=== PATIENT | female | born 1950 | race Caucasian/White ===

== ENCOUNTER 2017-12-24 11:01 | Emergency (ER) | payer MEDICARE, MEDICAID ==
[~2017-12-24] VITALS: Ht 175.3 cm; Wt 99.7 kg
[~2017-12-24 11:01] MED LIST: ADULT LOW DOSE81 MG PO; ALBUTEROL SULF8.5 GM INH; ALBUTEROL2.5 MG/3 M INH; ASPIR-TRIN325 MG PO; BACLOFEN10 MG PO; CEPHALEXIN500 MG PO; CYMBALTA30 MG PO; CYMBALTA60 MG PO; EXCEDRIN MIGRA1 EAC2 PO; FLUARIX QU60 MCG/0.3 IM; GABAPENTIN600 MG PO; HYDROCODON-ACE1 EAC8 PO; HYDROMORPHONE HC4 MG PO; MAG-OXIDE400 MG PO; METFORMIN HCL500 M2 PO; METFORMIN HCL500 MG PO; MIRALAX17 GM PO; MULTIVITAMINS1 EAC8 PO; NORCO 10-325 T1 EACH PO; NORCO 5-325 TA1 EACH PO; OMEPRAZOLE20 MG PO; OXYCODONE HCL5 MG PO; PRILOSEC20 MG PO; PROMETHAZINE HC25 M1 PO; SIMVASTATIN40 MG PO; VENTOLIN HFA18 GM INH; VITAMIN B-12100 MCG PO; VITAMIN D31000 UNIT PO
[2017-12-24] MEDS ORDERED: VALIUM10 MG PO (11:24)
== END 2017-12-24 17:28 | disposition short-term general hospital (02) ==
LOC: ED 11:01
DX: A18.01 Tuberculosis of spine (principal); F17.200 Nicotine dependence, unspecified, uncomplicated; E11.9 Type 2 diabetes mellitus without complications; J44.9 Chronic obstructive pulmonary disease, unspecified; Z88.2 Allergy status to sulfonamides; Z88.1 Allergy status to other antibiotic agents; Z88.8 Allergy status to other drugs, medicaments and biological substances; Z91.030 Bee allergy status; Z79.899 Other long term (current) drug therapy
CPT/HCPCS: 72100; 72158; 81001; 85025; 96361; 96374; 96375; 96376; 99285; A9579; J1100; J1170; J2060; J2405; J7120

== ENCOUNTER 2018-02-12 10:02 | Emergency (ER) | payer MEDICARE, MEDICAID ==
[~2018-02-12] VITALS: Ht 175.3 cm; Wt 99.7 kg
[~2018-02-12 10:02] MED LIST changes: +VALIUM10 MG PO
[2018-02-12] MEDS ORDERED: MORPHINE SULFAT10 M1 PO (10:41)
[2018-02-12] MEDS ORDERED: PERCOCET 5-3251 EACH PO (10:42)
== END 2018-02-12 11:44 | disposition home or self-care (01) ==
LOC: ED 10:02
DX: M25.561 Pain in right knee (principal); J44.9 Chronic obstructive pulmonary disease, unspecified; F17.200 Nicotine dependence, unspecified, uncomplicated; Z88.2 Allergy status to sulfonamides; Z88.8 Allergy status to other drugs, medicaments and biological substances; Z88.1 Allergy status to other antibiotic agents; Z91.030 Bee allergy status; Z79.899 Other long term (current) drug therapy; Z79.891 Long term (current) use of opiate analgesic; Z79.84 Long term (current) use of oral hypoglycemic drugs
CPT/HCPCS: 73560; 99283

== ENCOUNTER 2018-04-26 18:07 | Emergency (ER) | payer MEDICARE, MEDICAID ==
[~2018-04-26] VITALS: Ht 175.3 cm; Wt 97.9 kg
[~2018-04-26 18:07] MED LIST changes: +MORPHINE SULFAT10 M1 PO; +PERCOCET 5-3251 EACH PO
[2018-04-26] MEDS ORDERED: ZOFRAN ODT4 MG PO (20:42)
--- NOTE | 2018-04-27 10:49 | EKG ---
[facility] [address] [place], [place] [address] Signed Normal sinus rhythm Anterior infarct , age undetermined Abnormal ECG No previous ECGs available Confirmed by ZEYNEP MAYS MD ([id number]) on 04/27/2018 10:48:45 AM Electronically Signed By: ZEYNEP MAYS MD 04/27/18 1049 PATIENT NAME: ONEIL HAJIINE ANTHONY Electrocardiogram DATE OF : 52 PHYSICIAN: ZEYNEP MAYS MD REPORT #: [id number] REPORT IS CONFIDENTIAL AND NOT TO BE RELEASED WITHOUT AUTHORIZATION
== END 2018-04-26 20:52 | disposition home or self-care (01) ==
LOC: ED 18:07
DX: R07.89 Other chest pain (principal); R10.13 Epigastric pain; J44.9 Chronic obstructive pulmonary disease, unspecified; E11.9 Type 2 diabetes mellitus without complications; F17.200 Nicotine dependence, unspecified, uncomplicated; Z88.2 Allergy status to sulfonamides; Z88.1 Allergy status to other antibiotic agents; Z91.048 Other nonmedicinal substance allergy status; Z88.8 Allergy status to other drugs, medicaments and biological substances; Z91.030 Bee allergy status; Z79.899 Other long term (current) drug therapy; Z79.84 Long term (current) use of oral hypoglycemic drugs
CPT/HCPCS: 71045; 80053; 83690; 84484; 85025; 93005; 93010; 96361; 96374; 96375; 99284; J2270; J2405; J7030

== ENCOUNTER 2019-03-03 20:19 | Emergency (ER) | payer MEDICARE, MEDICAID ==
[~2019-03-03] VITALS: Ht 175.3 cm; Wt 89.8 kg
[~2019-03-03 20:19] MED LIST changes: +PERCOCET 7.5-31 EACH PO; +ZOFRAN ODT4 MG PO
[2019-03-03] MEDS ORDERED: PROMETHAZINE HC25 M1 PO (21:26)
== END 2019-03-03 21:38 | disposition home or self-care (01) ==
LOC: ED 20:19
DX: R11.2 Nausea with vomiting, unspecified (principal); E11.9 Type 2 diabetes mellitus without complications; J44.9 Chronic obstructive pulmonary disease, unspecified; G43.909 Migraine, unspecified, not intractable, without status migrainosus; Z87.891 Personal history of nicotine dependence; Z88.2 Allergy status to sulfonamides; Z88.1 Allergy status to other antibiotic agents; Z88.8 Allergy status to other drugs, medicaments and biological substances; Z91.048 Other nonmedicinal substance allergy status; Z88.5 Allergy status to narcotic agent; Z79.899 Other long term (current) drug therapy; Z79.84 Long term (current) use of oral hypoglycemic drugs
CPT/HCPCS: 99283

== ENCOUNTER 2019-05-10 16:41 | Emergency (ER) | payer MEDICARE ==
[~2019-05-10] VITALS: Ht 175.3 cm; Wt 82.6 kg
[2019-05-10] MEDS ORDERED: ZOFRAN8 MG PO (17:05)
[2019-05-10] MEDS ORDERED: SERTRALINE HCL50 MG PO (17:06)
[2019-05-10] MEDS ORDERED: ONDANSETRON ODT8 MG PO (20:08)
[2019-05-10] MEDS ORDERED: PHENERGAN25 MG PR (20:09)
== END 2019-05-10 20:21 | disposition home or self-care (01) ==
LOC: ED 16:41
DX: R11.10 Vomiting, unspecified (principal); E11.9 Type 2 diabetes mellitus without complications; Z85.89 Personal history of malignant neoplasm of other organs and systems; Z87.891 Personal history of nicotine dependence; Z90.49 Acquired absence of other specified parts of digestive tract; Z90.710 Acquired absence of both cervix and uterus; Z88.1 Allergy status to other antibiotic agents; Z88.2 Allergy status to sulfonamides; Z91.048 Other nonmedicinal substance allergy status; Z91.030 Bee allergy status; Z88.5 Allergy status to narcotic agent; Z88.6 Allergy status to analgesic agent; Z79.84 Long term (current) use of oral hypoglycemic drugs; Z79.899 Other long term (current) drug therapy
CPT/HCPCS: 71260; 74177; 80053; 81001; 83690; 85025; 99284-25; J2405; J2550

== ENCOUNTER 2020-08-08 13:10 | Emergency (ER) | payer MEDICARE, MEDICAID ==
[~2020-08-08] VITALS: Ht 175.3 cm; Wt 90.3 kg
[~2020-08-08 13:10] MED LIST changes: +ONDANSETRON ODT8 MG PO; +PHENERGAN25 MG PR; +SERTRALINE HCL50 MG PO; +ZOFRAN8 MG PO
--- OUTSIDE RECORDS SUMMARY | 2020-08-08 13:12 | XMS ---
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 CARE PROVIDERS There are no care providers on record at this time. Juno has no Care Guidelines for this patient. Evelyne VISIT COUNT (12 MO.) 6 [facility] 1 SAMUEL Jhaveri TOTAL 7 NOTE: Visits indicate total known visits. ED/C VISIT TRACKING (12 MO.) 08/08/2020 13:10 [facility] [place] TYPE: Emergency COMPLAINT: - BACK PAIN 04/04/2020 14:57 [facility] [place] TYPE: Emergency DIAGNOSES: - V/SOB - Chronic obstructive pulmonary disease, unspecified - Contact with and (suspected) exposure to other viral communic - Vomiting (Severe) - Nausea with vomiting, unspecified - Shortness of Breath - Cough - Suicidal ideations 03/11/2020 20:58 [facility] [place] TYPE: Emergency DIAGNOSES: - Unspecified chronic bronchitis - Emesis - Acute bronchitis, unspecified - Shortness of Breath - sob, cough, throwing up - Noninfective gastroenteritis and colitis, unspecified 12/07/2019 15:30 [facility] [place] TYPE: Emergency DIAGNOSES: - Vomiting, unspecified - Abnormal levels of other serum enzymes - congestion, emesis - Fatigue 08/17/2019 23:47 [facility]ika [place] TYPE: Emergency DIAGNOSES: - Chest Pain - Calculus of gallbladder without cholecystitis without obstruc - Chest pain/vomiting - Emesis [facility]2019 [facility] [place] [facility] DIAGNOSES: - Emesis - CP, V - Chest Pain - Gastritis, unspecified, without bleeding 08/10/2019 15:38 [facility] [place] TYPE: Emergency DIAGNOSES: - Nausea - Nausea with vomiting, unspecified - Emesis - nausea,vomiting INPATIENT VISIT TRACKING (12 MO.) 04/04/2020:[facility] [place] [facility] DIAGNOSES: - Suicidal ideations - Chronic obstructive pulmonary disease, unspecified - Nausea with vomiting, unspecified - Contact with and (suspected) exposure to other viral communic - Cough [id number]
[2020-08-08] MEDS ORDERED: TRELEGY ELLIPT1 EACH INH (13:30)
[2020-08-08] MEDS ORDERED: NORCO 10-325 T1 EACH PO (14:37)
== END 2020-08-08 14:52 | disposition home or self-care (01) ==
LOC: ED 13:10
DX: G89.29 Other chronic pain (principal); M54.5 Low back pain; E11.9 Type 2 diabetes mellitus without complications; J44.9 Chronic obstructive pulmonary disease, unspecified; G43.909 Migraine, unspecified, not intractable, without status migrainosus; F17.200 Nicotine dependence, unspecified, uncomplicated; Z88.2 Allergy status to sulfonamides; Z88.1 Allergy status to other antibiotic agents; Z88.8 Allergy status to other drugs, medicaments and biological substances; Z91.030 Bee allergy status; Z88.5 Allergy status to narcotic agent; Z91.048 Other nonmedicinal substance allergy status; Z79.899 Other long term (current) drug therapy
CPT/HCPCS: 99283

== ENCOUNTER 2020-08-15 14:22 | Emergency (ER) | payer MEDICARE, MEDICAID ==
[~2020-08-15] VITALS: Ht 175.3 cm; Wt 90.3 kg
[~2020-08-15 14:22] MED LIST changes: +TRELEGY ELLIPT1 EACH INH
--- OUTSIDE RECORDS SUMMARY | 2020-08-15 14:26 | XMS ---
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 - 2 Visits in 30 Days CARE PROVIDERS SHAD MCINTYRE Internal Medicine 08/09/2020-Current PHONE: [phone] Juno has no Care Guidelines for this patient. Care History Medical/Surgical 08/09/2020 [facility] - Patient is currently established with [facility]. If patient is seen in the ED during business hours. Please contact CHWs at [facility]. Care Recommendation: If this patient has had 5 or more Emergency Department visits in the last 12 months.\T\nbsp; Patient will require education on the scope and purpose of the ED as an acute care provider not a Primary Care Provider and should not be utilized for chronic conditions.\T\nbsp; These are guidelines and the provider should exercise clinical judgment when providing care. E.D. VISIT COUNT (12 MO.) 5 [place] [facility] 2 [facility] TOTAL 7 NOTE: Visits indicate total known visits. ED/UCC VISIT TRACKING (12 MO.) 08/15/2020 14:23 [facility] [place] TYPE: Emergency COMPLAINT: - HIGH BLOOD SUGAR 08/08/2020 13:10 [facility] [place] TYPE: Emergency COMPLAINT: - BACK PAIN NON INJURY DIAGNOSES: - Allergy status to other drugs, medicaments and biological sub - Chronic obstructive pulmonary disease, unspecified - Bee allergy status - Allergy status to sulfonamides status - Other chronic pain - Other longterm (current) drug therapy - Migraine, unspecified, not intractable, without status migrai - Allergy status to other antibiotic agents status - Low back pain - Type 2 diabetes mellitus without complications - Allergy status to narcotic agent status - Other nonmedicinal substance allergy status - Nicotine dependence, unspecified, uncomplicated 04/04/2020 14:57 [facility] [place] TYPE: Emergency DIAGNOSES: - V/SOB - Chronic obstructive pulmonary disease, unspecified - Contact with and (suspected) exposure to other viral communic - Vomiting (Severe) - Nausea with vomiting, unspecified - Shortness of Breath - Cough - Suicidal ideations 03/11/2020 20:58 [facility] [place] TYPE: Emergency DIAGNOSES: - Unspecified chronic bronchitis - Emesis - Acute bronchitis, unspecified - Shortness of Breath - sob, cough, throwing up - Noninfective gastroenteritis and colitis, unspecified 12/07/2019 15:30 [facility] [place] TYPE: Emergency DIAGNOSES: - Vomiting, unspecified - Abnormal levels of other serum enzymes - congestion, emesis - Fatigue 08/17/2019 23:47 [facility] TYPE: Emergency DIAGNOSES: - Chest Pain - Calculus of gallbladder without cholecystitis without obstruc - Chest pain/vomiting - Emesis 08/16/2019 18:18 [facility] TYPE: Emergency DIAGNOSES: - Emesis - CP, V - Chest Pain - Gastritis, unspecified, without bleeding INPATIENT VISIT TRACKING (12 MO.) 04/04/2020 14:57 [facility] [place] TYPE: Medical Surgical DIAGNOSES: - Suicidal ideations - Chronic obstructive pulmonary disease, unspecified - Nausea with vomiting, unspecified - Contact with and (suspected) exposure to other viral communic - Cough [id number]
[2020-08-15] MEDS ORDERED: METFORMIN HCL500 MG PO (14:45)
[2020-08-15] MEDS ORDERED: BACLOFEN10 MG PO (14:45)
[2020-08-15] MEDS ORDERED: ONDANSETRON ODT4 MG SL (15:19)
== END 2020-08-15 15:40 | disposition home or self-care (01) ==
LOC: ED 14:22
DX: R73.9 Hyperglycemia, unspecified (principal); R11.0 Nausea; T42.8X5A Adverse effect of antiparkinsonism drugs and other central muscle-tone depressants, initial encounter; J44.9 Chronic obstructive pulmonary disease, unspecified; G43.909 Migraine, unspecified, not intractable, without status migrainosus; F17.200 Nicotine dependence, unspecified, uncomplicated; Z88.2 Allergy status to sulfonamides; Z88.1 Allergy status to other antibiotic agents; Z88.8 Allergy status to other drugs, medicaments and biological substances; Z91.048 Other nonmedicinal substance allergy status; Z88.5 Allergy status to narcotic agent; Z91.030 Bee allergy status; Z79.899 Other long term (current) drug therapy; Z79.84 Long term (current) use of oral hypoglycemic drugs
CPT/HCPCS: 99283

== ENCOUNTER 2022-02-11 15:54 | Emergency (ER) | payer MEDICARE, MEDICAID ==
[~2022-02-11] VITALS: Ht 175.3 cm; Wt 79.4 kg
--- NOTE | ~2022-02-11 | EKG ---
[facility] [address] [place], [place] [address] Draft EKG completed, results pending confirmation PATIENT NAME: OUMAR HAJI Electrocardiogram DATE OF : 52 PHYSICIAN: PRELIMINARY REPORT #: [id number] REPORT IS CONFIDENTIAL AND NOT TO BE RELEASED WITHOUT AUTHORIZATION
[~2022-02-11 15:54] MED LIST changes: +ONDANSETRON ODT4 MG SL
--- OUTSIDE RECORDS SUMMARY | 2022-02-11 15:56 | XMS ---
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 Care History Medical/Surgical 08/09/2020 [facility] - Patient is currently established with [facility]. If patient is seen in the ED during business hours. Please contact CHWs at [facility]. Care Recommendation: If this patient has [...] providing care. E.D. VISIT COUNT (12 MO.) 1 [facility] 1 SAMUEL Jhaveri TOTAL 2 NOTE: Visits indicate total known visits. ED/UCC VISIT TRACKING (12 MO.) 02/11/2022 15:54 SAMUEL [facility] TYPE: Emergency COMPLAINT: - VOMITING 02/08/2022 19:49 [facility] [place] [facility] DIAGNOSES: - Emesis - vomiting - Vomiting, unspecified INPATIENT VISIT TRACKING (12 MO.) No inpatient visits to display in this time frame [id number]
[2022-02-11] MEDS ORDERED: OXYCODONE-ACET1 EAC1 PO (17:33)
[2022-02-11] MEDS ORDERED: PROCHLORPERAZIN10 MG PO (18:36)
== END 2022-02-11 18:52 | disposition home or self-care (01) ==
LOC: ED 15:54
DX: E86.0 Dehydration (principal); R11.2 Nausea with vomiting, unspecified; K59.00 Constipation, unspecified; J44.9 Chronic obstructive pulmonary disease, unspecified; Z85.40 Personal history of malignant neoplasm of unspecified female genital organ; G43.909 Migraine, unspecified, not intractable, without status migrainosus; F17.200 Nicotine dependence, unspecified, uncomplicated; Z88.2 Allergy status to sulfonamides; Z88.8 Allergy status to other drugs, medicaments and biological substances; Z91.048 Other nonmedicinal substance allergy status; Z88.5 Allergy status to narcotic agent; Z88.1 Allergy status to other antibiotic agents; Z79.899 Other long term (current) drug therapy; Z79.891 Long term (current) use of opiate analgesic; Z79.84 Long term (current) use of oral hypoglycemic drugs; Z79.51 Long term (current) use of inhaled steroids
CPT/HCPCS: 71045; 74018; 80053; 81001; 83690; 83735; 84484; 85025; 93005; 93010; 96374; 99284-25; J2765; J7030

== ENCOUNTER 2022-09-08 11:05 | Emergency (ER) | payer MEDICARE, MEDICAID ==
[~2022-09-08] VITALS: Ht 175.3 cm; Wt 79.4 kg
[~2022-09-08 11:05] MED LIST changes: +OXYCODONE-ACET1 EAC1 PO; +PROCHLORPERAZIN10 MG PO
--- OUTSIDE RECORDS SUMMARY | 2022-09-08 11:08 | XMS ---
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 Care History Medical/Surgical 08/09/2020 [facility] - Patient is currently established with [facility]. If patient is seen in the ED during business hours. Please contact CHWs at [facility]. Care Recommendation: If this patient has had [...] care. E.D. VISIT COUNT (12 MO.) 1 [facility] 2 SAMUEL Jhaveri TOTAL 3 NOTE: Visits indicate total known visits. ED/UCC VISIT TRACKING (12 MO.) 09/08/2022 11:05 [facility] [place] TYPE: Emergency COMPLAINT: - HIP PAIN/INJURY 02/11/2022 15:54 [facility] [place] TYPE: Emergency COMPLAINT: - VOMITING DIAGNOSES: - Nausea with vomiting, unspecified - alf (current) use of oral hypoglycemic drugs - Nicotine dependence, unspecified, uncomplicated - Dehydration - Constipation, unspecified - Allergy status to narcotic agent - Personal history of malignant neoplasm of unspecified female genital organ - Migraine, unspecified, not intractable, without status migrainosus - Chronic obstructive pulmonary disease, unspecified - Other snf (current) drug therapy - Other nonmedicinal substance allergy status - Allergy status to other drugs, medicaments and biological substances - Allergy status to sulfonamides - alf (current) use of opiate analgesic - alf (current) use of inhaled steroids - Allergy status to other antibiotic agents 02/08/2022 19:49 [facility] [place] TYPE: Emergency DIAGNOSES: - Emesis - vomiting - Vomiting, unspecified INPATIENT VISIT TRACKING (12 MO.) No inpatient visits to display in this time frame [id number]
[2022-09-08] MEDS ORDERED: ONDANSETRON ODT8 MG PO (13:32)
[2022-09-08] MEDS ORDERED: DULOXETINE HCL60 MG PO (13:32)
[2022-09-08] MEDS ORDERED: PREGABALIN100 MG PO (13:32)
[2022-09-08] MEDS ORDERED: HYDROCODON-ACE1 EA10 PO (14:35)
== END 2022-09-08 14:51 | disposition home or self-care (01) ==
LOC: ED 11:05
DX: S32.591A Other specified fracture of right pubis, initial encounter for closed fracture (principal); E11.9 Type 2 diabetes mellitus without complications; J44.9 Chronic obstructive pulmonary disease, unspecified; F17.200 Nicotine dependence, unspecified, uncomplicated; Z88.2 Allergy status to sulfonamides; Z88.1 Allergy status to other antibiotic agents; Z91.048 Other nonmedicinal substance allergy status; Z88.8 Allergy status to other drugs, medicaments and biological substances; Z88.5 Allergy status to narcotic agent; Z91.038 Other insect allergy status; Z79.84 Long term (current) use of oral hypoglycemic drugs; Z79.899 Other long term (current) drug therapy; W18.30XA Fall on same level, unspecified, initial encounter
CPT/HCPCS: 73502; 99283-25

== ENCOUNTER 2022-10-08 03:51 | Emergency (ER) | payer MEDICARE, MEDICAID ==
[~2022-10-08] VITALS: Ht 175.3 cm; Wt 79.4 kg
[~2022-10-08 03:51] MED LIST changes: +DULOXETINE HCL60 MG PO; +HYDROCODON-ACE1 EA10 PO; +PREGABALIN100 MG PO
--- OUTSIDE RECORDS SUMMARY | 2022-10-08 03:54 | XMS ---
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 Care History Medical/Surgical 08/09/2020 [facility] - Patient is currently established with [facility]. If patient is seen in the ED during business hours. Please contact CHWs at [facility]. Care Recommendation: If this patient has had [...] COUNT (12 MO.) 1 [facility] 3 SAMUEL Jhaveri TOTAL 4 NOTE: Visits indicate total known visits. 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 [place] [place] TYPE: Emergency COMPLAINT: - VOMITING DIAGNOSES: - Other care home (current) drug therapy - Other nonmedicinal substance allergy status - Allergy status to other drugs, medicaments and biological substances - Allergy status to sulfonamides - senior living (current) use of opiate analgesic - senior living (current) use of inhaled steroids - Allergy status to other antibiotic agents - Nausea with vomiting, unspecified - senior living (current) use of oral hypoglycemic drugs - Nicotine dependence, unspecified, uncomplicated - Dehydration - Constipation, unspecified - Allergy status to narcotic agent - Personal history of malignant neoplasm of unspecified female genital organ - Migraine, unspecified, not intractable, without status migrainosus - Chronic obstructive pulmonary disease, unspecified 02/08/2022 19:49 [facility] [place] TYPE: Emergency DIAGNOSES: - Vomiting, unspecified - Emesis - vomiting INPATIENT VISIT TRACKING (12 MO.) No inpatient visits to display in this time frame [email or web address]
== END 2022-10-08 05:39 | disposition home or self-care (01) ==
LOC: ED 03:51
DX: S80.01XA Contusion of right knee, initial encounter (principal); S70.01XA Contusion of right hip, initial encounter; S70.11XA Contusion of right thigh, initial encounter; E11.9 Type 2 diabetes mellitus without complications; J44.9 Chronic obstructive pulmonary disease, unspecified; G43.909 Migraine, unspecified, not intractable, without status migrainosus; F17.200 Nicotine dependence, unspecified, uncomplicated; Z88.2 Allergy status to sulfonamides; Z88.1 Allergy status to other antibiotic agents; Z88.8 Allergy status to other drugs, medicaments and biological substances; Z91.048 Other nonmedicinal substance allergy status; Z88.5 Allergy status to narcotic agent; Z79.899 Other long term (current) drug therapy; W19.XXXA Unspecified fall, initial encounter
CPT/HCPCS: 36415; 72170; 73552; 73560; 80053; 82553; 85025; 99284-25

== ENCOUNTER 2023-09-29 11:51 | Emergency (ER) | payer MEDICARE, MEDICAID ==
[~2023-09-29] VITALS: Ht 175.3 cm; Wt 80.3 kg
--- OUTSIDE RECORDS SUMMARY | 2023-09-29 11:54 | XMS ---
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 Care History Medical/Surgical 08/09/2020 [facility] - Patient is currently established with [facility]. If patient is seen in the ED during business hours. Please contact CHWs at [facility]. Care Recommendation: If this patient has [...] providing care. E.D. VISIT COUNT (12 MO.) 2 SAMUEL Jhaveri TOTAL 2 NOTE: Visits indicate total known visits. ED/UCC VISIT TRACKING (12 MO.) 09/29/2023 11:52 [facility] [place] TYPE: Emergency COMPLAINT: - SHORT OF BREATH,CHEST PAIN 10/08/2022 03:51 [facility] [place] TYPE: Emergency COMPLAINT: - FALL MULTI INJ DIAGNOSES: - Allergy status to narcotic agent - Allergy status to other antibiotic agents - Allergy status to other drugs, medicaments and biological substances - Allergy status to sulfonamides - Chronic obstructive pulmonary disease, unspecified - Contusion of right hip, initial encounter - Contusion of right knee, initial encounter - Contusion of right thigh, initial encounter - Migraine, unspecified, not intractable, without status migrainosus - Nicotine dependence, unspecified, uncomplicated - Other termite helper (current) drug therapy - Other nonmedicinal substance allergy status - Pain in right knee - Type 2 diabetes mellitus without complications - Unspecified fall, initial encounter INPATIENT VISIT TRACKING (12 MO.) No inpatient visits to display in this time frame [id number]
[2023-09-29 12:22] LABS: HEMATOCRIT 45.1 % (35.0-50.0); LYMPHOCYTES 45.3 % (24-44); MCH 31.1 (27-36); MCHC 33.3 g/dl (30-36); MCV 93.4 fl (81-99); MONOCYTES 5.6 % (0-12); NEUTROPHILS 45.1 % (39-80); PLATELET COUNT 360 K/uL (140-440); RBC 4.83 M/ul (4.3-5.7); RDW 13.1 (10.5-15.0)
[2023-09-29 12:33] LABS: ALBUMIN 3.7 g/dL (3.4-5.0); ALBUMIN/GLOBULIN RATIO 1.09 (1.1-2.4); ALKALINE PHOSPHATASE 132 U/L (46-116); ALT (SGPT) 25 U/L (14-59); ANION GAP 13.2 (7-21); AST (SGOT) 25 U/L (15-37); BILIRUBIN, TOTAL 0.3 ng/dL (0.2-1.0); BUN/CREATININE RATIO 13.09 (6.0-28.6); CALCIUM 9.2 mg/dL (8.5-10.1); CARBON DIOXIDE 26 mmol/L (21-32); CHLORIDE 105 mmol/L (98-107); CREATININE, SERUM 0.84 mg/dL (0.55-1.02); GLOMERULAR FILTRATION RATE,EST 74 mL/min (>60); POTASSIUM 4.2 mmol/L (3.5-5.1); PROTEIN, TOTAL 7.1 g/dL (6.4-8.2); UREA NITROGEN 11 mg/dL (7-18)
[2023-09-29 16:22] VITALS: BP 135/77
--- NOTE | 2023-09-30 05:58 | EKG ---
[facility] [address] [facility] [place] [address] Signed Normal sinus rhythm Possible Anterior infarct (cited on or before 26-APR-2018) Abnormal ECG When compared with ECG of 29-SEP-2023 12:02, (Unconfirmed) No significant change was found Confirmed by MAYO AWAD MD ([id number]) on 09/30/2023 5:57:53 AM Electronically Signed By: MAYO AWAD 09/30/23 0557 PATIENT NAME: ONEIL HAJISHABBIR MAYOILLA Electrocardiogram DATE OF : 52 PHYSICIAN: MAYO AWAD REPORT #: [id number] REPORT IS CONFIDENTIAL AND NOT TO BE RELEASED WITHOUT AUTHORIZATION
== END 2023-09-29 16:21 | disposition home or self-care (01) ==
LOC: ED 11:51
PROVIDERS: Internal Medicine
DX: R07.89 Other chest pain (principal); J44.9 Chronic obstructive pulmonary disease, unspecified; I10 Essential (primary) hypertension; E11.9 Type 2 diabetes mellitus without complications; E78.5 Hyperlipidemia, unspecified; F17.200 Nicotine dependence, unspecified, uncomplicated; Z88.0 Allergy status to penicillin; Z88.1 Allergy status to other antibiotic agents; Z88.2 Allergy status to sulfonamides; Z88.5 Allergy status to narcotic agent; Z91.030 Bee allergy status; Z91.048 Other nonmedicinal substance allergy status; Z79.899 Other long term (current) drug therapy; Z79.84 Long term (current) use of oral hypoglycemic drugs
CPT/HCPCS: 36415; 71046; 71260; 80053; 84484; 85025; 85379; 93005; 93010; Q9967

== ENCOUNTER 2024-04-23 08:25 | Day surgery (SDC) | payer MEDICARE, MEDICAID ==
[~2024-04-23] VITALS: Ht 175.3 cm; Wt 82.0 kg
[~2024-04-23 08:25] MED LIST changes: +CEFAZOLIN SODIUM 2 GM/20 ML SYR IV SCH; +IBLOOD GLUCOSE TEST STRIP 1 EA TEST VI PRN; +LACTATED RINGER'S 1,000 ML IV SCH; +LIDOCAINE HCL 1% 5 ML SDV INJ ONE; +MIDAZOLAM HCL 5 MG/5 ML VIAL IV PRN; +fentaNYL citrate 100 MCG/2 ML VIAL IV PRN
[2024-04-23 08:39] VITALS: BP 129/69
[2024-04-23] MEDS ORDERED: LIDOCAINE1 EAC1 TP (08:53)
[2024-04-23] MEDS ORDERED: ACETAMINOPHEN500 MG PO (08:53)
[2024-04-23] MEDS ORDERED: K-TAB ER20 MEQ PO (08:54)
[2024-04-23] MEDS ORDERED: PANTOPRAZOLE SO40 MG PO (08:54)
[2024-04-23] MEDS ORDERED: propofoL 200 MG/20 ML VIAL ONE (09:53)
[2024-04-23] MEDS ORDERED: LACTATED RINGER'S 1,000 ML IV ONE (10:44)
--- NOTE | 2024-04-23 11:38 | NUR ---
04/23/24 1138 Sheets,[place] 1121 PT ARRIVED TO PACU ON 10L VIA MASK WITH ORAL AIRWAY IN PLACE. RESP EVEN AND UNLABORED. 1131 PT WOKE AND STARTED TO COUGH, ORAL AIRWAY AND MASK REMOVED. PT REORIENTED TO PACU AND DENIES CONCERNS, PT EASILY FALLS BACK TO SLEEP.
[2024-04-23 12:11] VITALS: BP 142/83
--- NOTE | 2024-04-24 07:07 | OR ---
[facility] [address] [place], [place] [address] Signed DATE OF OPERATION: SURGEON: Olman Tavarez MD PREOPERATIVE DIAGNOSES: 1. Change in bowel habits with constipation. 2. personal history of hyperplastic polyps next #zero bowel syndrome. POSTOPERATIVE DIAGNOSIS: 1. Minimal sigmoid diverticulosis. 2. Sadrxsj-gg-ucmdkggh internal hemorrhoids. 3. A 5 mm polyp at the appendiceal orifice. 4. A 5 mm sessile polyp at 65 cm in the left colon. PROCEDURE: Colonoscopy with hot biopsy. ESTIMATED BLOOD LOSS: None. INDICATIONS: Oumar is a 73-year-old female, who significantly disabled mainly from her back. She has had quite a bit of constipation both before and after her back surgeries. She sees this as a change in bowel habits. Unfortunately, her memory is not the best. She was using Metamucil, but then developed diarrhea. She had been asked to see me in the office for followup. I went through her extensive records. I helped in 2009 at the age of 59 with her initial colonoscopy. It was the same issue with change in bowel habits with constipation alternating with diarrhea and gas. She had a few small hyperplastic polyps removed. We asked her to follow up in 10 years. She went to see Dr. Damon in 2018 at the age of 67 for what sounds like diarrhea. Random biopsies from the colon were unremarkable. She had a small hiatal hernia. She was to see her cable reeler, Dr. Cooper Gamez back in 2018. She apparently had a small hiatal hernia with some low-grade narrowing possibly concerning for mild Schatzki's ring, which was dilated. Biopsies from the stomach and duodenum were unremarkable. She went back a year later in 2019 with another cable reeler in that group, Dr. Hollingsworth, who again repeated the upper endoscopy mainly for nausea, vomiting, and elevated liver function test after a cholecystectomy. She had negative biopsies. An MRCP had been ordered and it was negative. She also has flank and incisional hernia from her back surgeries that has never been repaired. She gives no family history of colon cancer or polyps. Apparently in the past, she has had amoebic dysentery back in 1984. She continues on oxycodone for chronic pain issues. In that regard, we asked her to take a double bowel Electronically Signed By: OLMAN TAVAREZ MD 04/24/24 0707 PATIENT NAME: OUMAR HAJI OPERATIVE REPORT DATE OF : 52 REPORT #: [id number] PHYSICIAN: OLMAN TAVAREZ MD PCP: SHADIA SHI MD REPORT IS CONFIDENTIAL AND NOT TO BE RELEASED WITHOUT AUTHORIZATION [facility] [address] [place], [place] [address] Signed prep, which she apparently completed. She is very familiar with colonoscopy. There is risk including, but not limited to gas bloating, gas, bloating, crampy abdominal pain, bleeding, perforation requiring surgery, and missed diagnosis. We also reviewed the need for monitored anesthesia care given her advanced medical issues including her chronic pain syndrome and heart failure with COPD, other issues. That proved to be a solis decision today. She had expressed understanding and wished to proceed. She understands an adult person asked to take her home afterwards. DESCRIPTION OF PROCEDURE: Oumar was taken into our endoscopy suite and placed in the left lateral decubitus position. She was given monitored anesthesia care, propofol infusion per nurse title i director. A digital rectal exam was performed and she had very small external hemorrhoids. She had good sphincter tone. There were no masses. The adult colonoscope was introduced and advanced all around into the cecum under direct visualization of camera. Her prep was actually fairly good. She just had a couple areas of pasty stool, which of course could not be suctioned out. However, we were able to easily go around those areas. We could easily see the appendiceal orifice. She had a polypoid lesion on the edge of the appendiceal orifice, which we biopsied and removed the hot biopsy forceps. The scope was then slowly withdrawn. We took out an additional sessile polyp back at 65 cm. We thought we saw just two or three little tiny diverticula in the sigmoid colon. Once down in the rectum, the scope had been retroflexed and she does have wbfrkif-ym-igrcxzhu internal hemorrhoid columns as well. After this, the gas was suctioned out. The colonoscope removed. Oumar tolerated procedure quite well. RECOMMENDATIONS: I will see Oumar back in my office in 7 to 14 days to review her results. It appears that she has similar complaints with similar results on her endoscopy. Olman Tavarez MD ALB/MODL /[id number] cc: MD Dr. Shadia Boyle Electronically Signed By: OLMAN TAVAREZ MD 04/24/24 0707 PATIENT NAME: OUMAR HAJI OPERATIVE REPORT DATE OF : 52 REPORT #: [id number] PHYSICIAN: OLMAN TAVAREZ MD PCP: SHADIA SHI MD REPORT IS CONFIDENTIAL AND NOT TO BE RELEASED WITHOUT AUTHORIZATION [facility] [address] [address] [place], [place] [address] Signed Patient Chart Copies: OLMAN TAVAREZ MD ~ Electronically Signed By: OLMAN TAVAREZ MD 04/24/24 0707 PATIENT NAME: OUMAR HAJI OPERATIVE REPORT DATE OF : 52 REPORT #: [id number] PHYSICIAN: OLMAN TAVAREZ MD PCP: SHADIA SHI MD REPORT IS CONFIDENTIAL AND NOT TO BE RELEASED WITHOUT AUTHORIZATION
--- NOTE | 2024-04-28 20:17 | PATH ---
[facility] [address] [facility] [place] [address] Signed SPECIMEN(S): A CECUM APPENDICEAL ORIFICE POLYP SPECIMEN(S): B DESCENDING/LEFT COLON POLYP AT 65 CM SPECIMEN SOURCE: A. CECUM APPENDICEAL ORIFICE POLYP B. DESCENDING/LEFT COLON POLYP AT 65 CM CLINICAL HISTORY: IBS FINAL PATHOLOGIC DIAGNOSIS: A. Cecum appendiceal orifice polyp: - Serrated polyp/adenoma (one fragment). B. Descending/left colon polyp at 65 cm: - Hyperplastic polyp (one fragment). JVR:isa MICROSCOPIC EXAMINATION: Histologic sections of all submitted blocks are examined by light microscopy. These findings, together with the gross examination, support the pathologic diagnosis. GROSS DESCRIPTION: A. The specimen, labeled and designated "Dustin, cecum appendiceal orifice polyp," is received in formalin and consists of two arango soft tissue fragments, ranging from 0.2-0.3 cm. Entirely submitted in (A1). B. The specimen, labeled and designated "Dustin, descending/left colon polyp at 65 cm," is received in formalin and consists of one arango soft tissue fragment, 0.4 cm. Entirely submitted in (B1). VB (under the direct supervision of a pathologist) The Gross Description was prepared using a voice recognition system. The report was reviewed for accuracy; however, sound-alike word errors, addition and/or deletions may occur. If there is any question about this report, please contact Client Services. PERFORMING LABORATORY: Technical component was performed by [facility] [employer], [address] [place] [id number] (CLIA# [id number]). Professional interpretation was performed by [facility] - [facility], [address] [place] [id number] (CLIA#: [id number]). PATIENT NAME: OUMAR HAJI PATHOLOGY DATE OF : 52 REPORT #: [id number] PHYSICIAN: TARAN PATHOLOGY PCP: CHRISTY SHI MD REPORT IS CONFIDENTIAL AND NOT TO BE RELEASED WITHOUT AUTHORIZATION [address] [place] [address] Signed Diagnostician: Bola Ferreira MD Pathologist Electronically Signed 04/28/2024 Copies: ~ PATIENT NAME: OUMAR HAJI PATHOLOGY DATE OF : 52 REPORT #: [id number] PHYSICIAN: TARAN PATHOLOGY PCP: CHRISTY SHI MD REPORT IS CONFIDENTIAL AND NOT TO BE RELEASED WITHOUT AUTHORIZATION
== END 2024-04-23 12:21 | disposition home or self-care (01) ==
LOC: DS 08:25
PROVIDERS: ATTEND Colon & Rectal Surgery
PROC: 0DBE8ZX Excision of Large Intestine, Via Natural or Artificial Opening Endoscopic, Diagnostic (ICD-10-PCS; principal; 2024-04-23 09:30)
DX: D12.0 Benign neoplasm of cecum (principal); K63.5 Polyp of colon; K57.30 Diverticulosis of large intestine without perforation or abscess without bleeding; K64.8 Other hemorrhoids; G47.30 Sleep apnea, unspecified; J43.9 Emphysema, unspecified; I50.9 Heart failure, unspecified; E11.9 Type 2 diabetes mellitus without complications; E78.2 Mixed hyperlipidemia; G47.33 Obstructive sleep apnea (adult) (pediatric); K21.9 Gastro-esophageal reflux disease without esophagitis; Z88.1 Allergy status to other antibiotic agents; Z88.2 Allergy status to sulfonamides; Z88.8 Allergy status to other drugs, medicaments and biological substances; Z79.84 Long term (current) use of oral hypoglycemic drugs; Z79.899 Other long term (current) drug therapy
CPT/HCPCS: 00811; J0690; J2704; J7121

== ENCOUNTER 2024-12-27 16:51 | Emergency (ER) | payer MEDICARE, MEDICAID ==
[~2024-12-27] VITALS: Ht 175.3 cm; Wt 78.9 kg
[2024-12-27 17:43] LABS: CORONAVIRUS COVID-19 AG NEGATIVE (NEGATIVE); INFLUENZA A AG NEGATIVE (NEGATIVE); INFLUENZA B AG NEGATIVE (NEGATIVE)
[2024-12-27] MEDS ORDERED: predniSONE 20 MG TAB PO ONE (17:45)
[2024-12-27 18:56] LABS: BILIRUBIN, URINE NEGATIVE (negative); BLOOD/HGB, URINE NEGATIVE (Negative); KETONE, URINE NEGATIVE (Negative); LEUK ESTERASE, URINE NEGATIVE (negative); NITRITE, URINE NEGATIVE (negative)
[2024-12-27 19:07] LABS: BACTERIA, URINE RARE /hpf (negative); CASTS, URINE NONE SEEN \\lpf; COLLECTION TYPE, URINE CLEAN CATCH; CRYSTALS, URINE NONE SEEN (0-1+); EPITHELIAL CELLS, URINE SQUAMOUS 1+ /lpf (0-1+); RED BLOOD CELLS, URINE 0-1 /hpf (0-5); REFLEX CULTURE, URINE No (No)
[2024-12-27 19:30] VITALS: BP 142/71
[2024-12-27] MEDS ORDERED: AZITHROMYCIN 250 MG TAB PO ONE (19:30)
== END 2024-12-27 19:42 | disposition home or self-care (01) ==
LOC: ED 16:51
PROVIDERS: Emergency Medicine
DX: J44.1 Chronic obstructive pulmonary disease with (acute) exacerbation (principal); J44.0 Chronic obstructive pulmonary disease with (acute) lower respiratory infection; J18.9 Pneumonia, unspecified organism; E11.9 Type 2 diabetes mellitus without complications; F17.200 Nicotine dependence, unspecified, uncomplicated; Z88.2 Allergy status to sulfonamides; Z88.1 Allergy status to other antibiotic agents; Z88.6 Allergy status to analgesic agent; Z91.030 Bee allergy status; Z88.5 Allergy status to narcotic agent; Z88.8 Allergy status to other drugs, medicaments and biological substances; Z91.048 Other nonmedicinal substance allergy status; Z79.84 Long term (current) use of oral hypoglycemic drugs; Z79.899 Other long term (current) drug therapy
CPT/HCPCS: 36415; 71046; 81001; 99283-25; J7512

== ENCOUNTER 2025-03-10 20:45 | Emergency (ER) | payer MEDICARE, MEDICAID ==
[~2025-03-10] VITALS: Ht 175.3 cm; Wt 79.0 kg
[~2025-03-10 20:45] MED LIST changes: +ACETAMINOPHEN500 MG PO; -CEFAZOLIN SODIUM 2 GM/20 ML SYR IV SCH; -IBLOOD GLUCOSE TEST STRIP 1 EA TEST VI PRN; +K-TAB ER20 MEQ PO; -LACTATED RINGER'S 1,000 ML IV SCH; -LIDOCAINE HCL 1% 5 ML SDV INJ ONE; +LIDOCAINE1 EAC1 TP; -MIDAZOLAM HCL 5 MG/5 ML VIAL IV PRN; +PANTOPRAZOLE SO40 MG PO; +PREDNISONE20 MG PO; +ZITHROMAX250 MG PO; -fentaNYL citrate 100 MCG/2 ML VIAL IV PRN
[2025-03-10] MEDS ORDERED: ALBUTEROL/IPRATROPIUM 3 ML NEB INH PRN (21:15)
[2025-03-10] MEDS ORDERED: methylPREDNISolone SOD SUCC 125 MG/2 ML VIAL IV ONE (21:30)
[2025-03-10 21:31] LABS: BASOPHILS 1.1 % (0-2); EOSINOPHILS 2.3 % (0-6); HEMATOCRIT 43.4 % (35.0-50.0); HEMOGLOBIN 14.9 g/dL (12.0-18.0); LYMPHOCYTES 57.4 % (24-44); MCH 30.9 (27-36); MCHC 34.4 g/dl (30-36); MONOCYTES 5.4 % (0-12); NEUTROPHILS 33.8 % (39-80); PLATELET COUNT 274 K/uL (140-440); RBC 4.82 M/ul (4.3-5.7); RDW 13.8 (10.5-15.0)
[2025-03-10 21:58] LABS: ALBUMIN/GLOBULIN RATIO 0.86 (1.1-2.4); ANION GAP 8.1 (7-21); BILIRUBIN, TOTAL 0.3 mg/dL (0.2-1.0); BUN/CREATININE RATIO 6.25 (6.0-28.6); CALCIUM 8.2 mg/dL (8.5-10.1); CREATININE, SERUM 0.8 mg/dL (0.55-1.02); POTASSIUM 4.1 mmol/L (3.5-5.1); PROTEIN, TOTAL 6.5 g/dL (6.4-8.2)
[2025-03-10] MEDS ORDERED: IPRAT-ALBUT 0.5-3 ML INH (22:20)
[2025-03-10 22:30] VITALS: BP 10/71
[2025-03-10] MEDS ORDERED: AZITHROMYCIN 250 MG HOME.PACK PO ONE (22:30)
[2025-03-10] MEDS ORDERED: methylPREDNISolone 4 MG HOME.PACK PO ONE (22:30)
--- NOTE | 2025-03-11 22:54 | EKG ---
[facility] [address] [facility] [place] [address] Signed Sinus tachycardia Otherwise normal ECG When compared with ECG of 31-JAN-2024 13:19, No significant change was found Confirmed by Neil Copopla MD () on 03/11/2025 10:54:13 PM Electronically Signed By: NEIL COPPOLA MD 03/11/25 2254 PATIENT NAME: OUMAR HAJI Electrocardiogram DATE OF : 52 PHYSICIAN: NEIL COPPOLA MD REPORT #: [id number] REPORT IS CONFIDENTIAL AND NOT TO BE RELEASED WITHOUT AUTHORIZATION
== END 2025-03-10 22:30 | disposition home or self-care (01) ==
LOC: ED 20:45
PROVIDERS: Family Medicine
DX: J44.1 Chronic obstructive pulmonary disease with (acute) exacerbation (principal); F17.200 Nicotine dependence, unspecified, uncomplicated; Z88.2 Allergy status to sulfonamides; Z88.5 Allergy status to narcotic agent; Z88.1 Allergy status to other antibiotic agents; Z88.0 Allergy status to penicillin; Z88.8 Allergy status to other drugs, medicaments and biological substances; Z88.9 Allergy status to unspecified drugs, medicaments and biological substances; Z91.038 Other insect allergy status
CPT/HCPCS: 36415; 71045; 80053; 83735; 83880; 84484; 85025; 93005; 93010; 94640; 94667; 96374; 99285-25; J2919; U0002